=== PATIENT | female | born 1955 | race Caucasian/White ===

== ENCOUNTER 2017-11-26 13:56 | Emergency (ER) | payer OTHER ==
[~2017-11-26] VITALS: Ht 152.4 cm; Wt 97.6 kg
[2017-11-26 14:03] VITALS: BP 177/81; PULSE 75; RESP 16; TEMP 99; O2SAT 98
[2017-11-26] MEDS ORDERED: LIPI10TA PO (14:46)
[2017-11-26] MEDS ORDERED: BENI5TAB4 PO (14:46)
--- NOTE | 2017-11-26 15:31 | RADRPT ---
EXAM DATE/TIME: 11/26/2017 15:09 [facility] COMPARISON: No previous studies available for comparison. INDICATIONS : Left dorsal foot pain post fall. MEDICAL HISTORY : None. SURGICAL HISTORY : Left ankle tendon repair ENCOUNTER: Initial ACUITY: 1 day PAIN SCORE: 8/10 LOCATION: Left foot FINDINGS: Three view examination of the left foot demonstrates generalized soft tissue swelling, dislocation, o r fracture. The tarsal bones appear intact. The interphalangeal and metatarsophalangeal joints are intact. The calcaneus is intact. Bony mineralization is normal. CONCLUSION: Negative for fracture or dislocation. Follow up in 7-10 days is suggested if symptoms persist. Mike Verdin MD FACR on November 26, 2017 at 15:28 Board Certified Radiologist. This report was verified electronically.
--- NOTE | 2017-11-26 15:31 | RADRPT ---
EXAM DATE/TIME: 11/26/2017 15:09 [facility] COMPARISON: No previous studies available for comparison. INDICATIONS : Posterior left ankle pain post fall. MEDICAL HISTORY : None. SURGICAL HISTORY : Left ankle tendon repair ENCOUNTER: Initial ACUITY: 1 day PAIN SCORE: 8/10 LOCATION: Left ankle FINDINGS: Moderate soft tissue swelling with degenerative changes, negative for fracture. Anatomic alignment. CONCLUSION: Negative for fracture or dislocation. Follow up in 7-10 days is suggested if symptoms persist.. Mike Verdin MD FACR on November 26, 2017 at 15:28 Board Certified Radiologist. This report was verified electronically.
--- NOTE | 2017-11-26 15:32 | RADRPT ---
EXAM DATE/TIME: 11/26/2017 15:09 [facility] COMPARISON: No previous studies available for comparison. INDICATIONS : Left lateral knee pain post fall. MEDICAL HISTORY : None. SURGICAL HISTORY : Left ankle tendon repair ENCOUNTER: Initial ACUITY: 1 day PAIN SCORE: 8/10 LOCATION: Left knee FINDINGS: Degenerative changes with marked loss of articular cartilage. No joint effusion. Anatomic alignment . No fracture. CONCLUSION: Degenerative changes otherwise negative. Mike Verdni MD FACR on November 26, 2017 at 15:29 Board Certified Radiologist. This report was verified electronically.
[2017-11-26] MEDS ORDERED: IBUP1TAB7 PO (15:35)
[2017-11-26] MEDS ORDERED: ROBA500T PO (15:35)
--- NOTE | 2017-11-26 15:38 | PD ---
HPI Chief Complaint: Fall Time Seen by Provider: 14:33 Travel History International Travel<30 days: No Contact w/Intl Traveler<30days: No Traveled to known affect area: No History of Present Illness HPI 62-year-old female presents to emergency department with complaint of left ankle pain and swelling, left knee pain after she tripped and fell on the edging while playing miniature golf. She denies hitting her head or loss of consciousness. Denies neck pain. Says she is having some mid back pain to the musculature area area bilaterally. Denies midline back pain. Denies encopresis , incontinence, saddle anesthesias. Denies paresthesias, loss of sensation, decreased range of motion to all extremities. Has been ambulatory on the affected extremity since after the fall. Denies chest pain, shortness of breath , abdominal pain, vomiting, syncopal episode. Denies lightheadedness, dizziness. Denies anticoagulant therapy. Took 800 mg of ibuprofen prior to arrival. Rates pain 9/10. Describes her pain as "sore." Worse with movement. Better at rest. Patient has been using a walker that she has from home for support. She has a walker here with her in the ER. Primary CARE providers Dr. Lea. No known allergies. History of hypertension and hypercholesterolemia. Has no other medical complaints. No other modifying factors or associated signs and symptoms. PFSH Past Medical History Hypertension: Yes Tetanus Vaccination: > 5 Years Influenza Vaccination: Yes ?: Not Past Surgical History Hysterectomy: Yes Social History Alcohol Use: No Tobacco Use: No Substance Use: No Allergies-Medications (Allergen,Severity, Reaction): Coded Allergies: No Known Allergies (Verified Allergy, Unknown, 11/26/17) Reported Meds & Prescriptions Reported Meds & Active Scripts Active Robaxin (Methocarbamol) 500 Mg Tab 500 Mg PO QID Ibuprofen 800 Mg Tab 800 Mg PO Q6HR PRN Reported Benicar (Olmesartan) 5 Mg Tab 5 Mg PO DAILY Lipitor (Atorvastatin Calcium) 10 Mg Tab 10 Mg PO HS Review of Systems Except as stated in HPI: all other systems reviewed are Neg Physical Exam Narrative GENERAL: Well-nourished, well-developed female patient, in no acute distress SKIN: Warm and dry. HEAD: Atraumatic. Normocephalic. No facial or scalp abrasions or lacerations noted. EYES: Pupils equal and round at 3 mm with brisk reaction. No scleral icterus. No injection or drainage. No raccoon eyes. ENT: Mucosa pink and moist. No erythema or exudates. No uvular edema. No uvular , palatal, or tonsillar deviation. Airway patent. Nares without nasal blood. No rhinorrhea. EARS: Bilateral pinnae and external canals appear within normal limits. Bilateral tympanic membranes without erythema, dullness, hemotympanum or perforation. No otorrhea. NECK: Moving freely. Trachea midline. No lymphadenopathy. Active rotation of the neck greater than 45 left and right. No midline point tenderness on palpation of the cervical spine. No obvious deformities. CHEST: No retractions or use of accessory muscles. CARDIOVASCULAR: Regular rate and rhythm. No murmur appreciated. RESPIRATORY: No accessory muscle use. Clear to auscultation. Breath sounds equal bilaterally. GASTROINTESTINAL: Abdomen soft, non-tender, nondistended. Hepatic and splenic margins not palpable. Bowel sounds are active 4 quadrants. MUSCULOSKELETAL: No obvious deformities. No clubbing. No cyanosis. No edema. BACK: No midline point tenderness on palpation of the lumbar or thoracic spine. Reproducible tenderness to the musculature of bilateral thoracic back. No obvious deformities. Patient sitting up in bed at 90. NEUROLOGICAL: Awake and alert. Oriented 3. No obvious cranial nerve deficits. Motor grossly within normal limits. Normal speech. Moves all extremities. 5/5 strength to all extremities. Sensory intact. PSYCHIATRIC: Appropriate mood and affect; insight and judgment normal. Data Data Last Documented VS Vital Signs Date Time Temp Pulse Resp B/P (MAP) Pulse Ox O2 Delivery O2 Flow Rate FiO2 11/26/17 14:03 99.0 75 16 177/81 (113) 98 Orders Orders Ankle, Complete ([id number]) (11/26/17 14:58) Foot, Complete ([id number]) (11/26/17 14:58) Knee, Complete (4vws) (11/26/17 14:58) Ice/Cold Pack (11/26/17 14:58) Splint Or Brace Apply/Monitor (11/26/17 16:10) Ed Discharge Order (11/26/17 16:10) [facility] Medical Decision Making Medical Screen Exam Complete: Yes Emergency Medical Condition: Yes Medical Record Reviewed: Yes Differential Diagnosis Fall, ankle sprain, ankle fracture, foot fracture, foot sprain, knee contusion, patellar fracture, knee strain, thoracic back strain Narrative Course 62-year-old female with left ankle injury, left foot injury, left knee injury, and back pain to the musculature of her thoracic back after mechanical fall today. She denies hitting her head or loss of consciousness. Denies neck pain. No midline tenderness on palpation of the thoracic or lumbar spine. Denies encopresis, incontinence, saddle anesthesias. After the patient pain medication and she declined. Ice packs, left ankle x-ray, left foot x-ray, left knee x-ray ordered. 1611: Left ankle x-ray, left foot x-ray, left knee x-ray are all unremarkable. Patient has walker for support. Augustin bandage and ankle stirrup splint provided for support. Instructed patient to follow-up in 7-10 days if symptoms persist. Instructed patient to follow up with primary care provider. Patient verbalizes understanding and agreement with treatment plan. Patient is medically cleared and stable for discharge. Discussed reasons to return to the emergency department. Patient agrees with treatment plan. The patients vital signs are stable and the patient is stable for outpatient follow-up and treatment. Patient discharged home, stable and in no acute distress. Diagnosis Primary Impression: Fall Qualified Codes: W19.XXXA - Unspecified fall, initial encounter Additional Impressions: Left ankle injury Qualified Codes: S99.912A - Unspecified injury of left ankle, initial encounter Left knee injury Qualified Codes: S89.92XA - Unspecified injury of left lower leg, initial encounter Injury of left foot Qualified Codes: S99.922A - Unspecified injury of left foot, initial encounter Strain of muscle and tendon of back wall of thorax, initial encounter Referrals: Orthopaedic Surgeon Primary Care Physician Patient Instructions: Fall Prevention for Older Adults (ED), General Instructions, Muscle Spasm (ED), Thoracic Back Strain (ED) Additional Instructions: Tylenol or ibuprofen as directed and as needed for pain and inflammation Robaxin as prescribed and as needed for muscle spasms of the back Rest, ice, compress, and elevate extremity to decrease pain and inflammation Ice and/or heat to back to help with muscle spasms Ankle Brace for support Walker for support Avoid aggravating activity; increase activity as tolerated Follow-up with primary care provider Follow-up with orthopedics if symptoms persist greater than 7-10 days Return to the emergency department immediately with worsening of symptoms Med/Other Pt SpecificInfo: Prescription(s) given Scripts Methocarbamol (Robaxin) 500 Mg Tab 500 MG PO QID for Muscle Spasm, #30 TAB 0 Refills Prov: Ashleigh Keenan 11/26/17 Ibuprofen (Ibuprofen) 800 Mg Tab 800 MG PO Q6HR Y for PAIN, #30 TAB 0 Refills Prov: Ashleigh Keenan 11/26/17 Disposition: 01 DISCHARGE HOME Condition: Stable Ashleigh Keenan Nov 26, 2017 15:38
== END 2017-11-26 16:40 | disposition home or self-care (01) ==
LOC: PHED 13:56 → PHEFT 16:40
DX: S99.912A Unspecified injury of left ankle, initial encounter (principal); S89.92XA Unspecified injury of left lower leg, initial encounter; S99.922A Unspecified injury of left foot, initial encounter; S29.012A Strain of muscle and tendon of back wall of thorax, initial encounter; I10 Essential (primary) hypertension; E78.00 Pure hypercholesterolemia, unspecified; W01.198A Fall on same level from slipping, tripping and stumbling with subsequent striking against other object, initial encounter; Y92.838 Other recreation area as the place of occurrence of the external cause
CPT/HCPCS: 73564; 73610; 73630; 99283; L1906